=== PATIENT | male | born 1975 | race Two or more races ===

== ENCOUNTER 2016-05-25 15:33 | Emergency (ER) | payer OTHER ==
[~2016-05-25] VITALS: Ht 152.4 cm; Wt 90.7 kg
[~2016-05-25 15:33] MED LIST: AMOXICOT500 M1 PO; BACTRIM DS 8001 TAB PO; CIPRO 500MG TA500 MG PO; KEFLEX 500MG.500 MG PO; LAMISIL AT1% TP; PHENERGAN25 M3 PO; PREDNISONE 20MG20 MG PO
--- NOTE | 2016-05-25 15:49 | Emergency Room Report ---
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 N Clinical Suspician of Infection? N Mental Status: 1 - Regular (Normal Baseline) Sepsis Risk:Low Sepsis Risk Have you (or family members/close friends) recently traveled outside the [place]? N If Yes, where/when: Have you had exposure to infectious disease within the past month? N TB? Other? Specify: Source patient Exam Limitations no limitations Comment Pt presents to ER with complaints of sore throat, pain with swallowing, PND, "little cough," no appetite, headache, and occasional nausea. Reports these symptoms have been present for one week. He has not been using any medications to treat, and no known sick exposures. Timing/Duration week (one) Severity mild Associated Symptoms nausea, cough, headache, sore throat ALLERGIES Coded Allergies: No Known Allergies (07/08/15) History Medical History General CAD? No Angina: No OR: No Hypertension? No Hyperlipidemia? Yes CHF? No COPD? No Asthma? No Anemia? No Hernia? No Thyroid Problems? No Hypothyroidism? No CVA? No Seizures? No Diabetes? No End Stage Renal Disease? No UTI? No Stones? No GB Disease: No Nephritic Syndrome? No Asplenia? No Sickle Cell Disease? No Arthritis? No Cataracts? No Glaucoma? No MRSA? No TB? No Cancer? No Immunization Hx DT/Tetanus 01/05/09 Surgical Hx Previous Surgery?Y R FINGERS REPAIR Social History Smoking Hx Smoker: Never Smoker Tobacco: No Alcohol Alcohol: No Review of Systems All Other Systems Reviewed and Negative ENT nose congestion, throat pain. denies: ear pain. Respiratory cough Gastrointestinal nausea Physical Exam Vital Signs Vital Signs Date Time Temp Pulse Resp B/P Pulse O2 O2 Flow FiO2 Ox Delivery Rate 05/25 1540 98.1 83 18 138/87 98 General Appearance normal appearance, WD/WN Eye Exam - bilateral eye normal exam, bilateral eye PERRL, bilateral eye EOMI Ear, Nose, Throat hearing grossly normal, abnormal TM (R), abnormal TM (L), sinus pain/drainage, nasal congestion, pharyngeal erythema, tonsillar exudate, tonsillar swelling Neck normal inspection, non-tender, supple, full range of motion Respiratory Status Yes: trachea midline, chest symmetrical, non tender chest. No: respiratory distress. Lung Sounds bilateral: normal breath sounds, lungs clear. 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 No Departure Departure Time of Disposition 1554 Disposition DC Home or Self Care(routine) Clinical Impression Primary Impression: Acute bacterial tonsillitis Secondary Impressions: Bilateral acute otitis media Condition STABLE Referrals Luis Byrd F/U in 1-2 weeks to ensure resolution of illness, sooner if worse before then. Patient Instructions DI for Otitis Media (Middle Ear Infection)-Child, DI for Pharyngitis/Tonsillopharyngitis -- Adult Additional Instructions Increase fluids, warm salt water gargles for throat 3 times a day for next 7-10 days. May use tylenol or ibuprofen as needed for fever and or pain. Discharge Counseling Counseled pt/family regarding diagnosis, medications/RX, home care, follow up needs Prescriptions Current Visit Scripts Amoxicillin/Potassium Clav (Augmentin 875-125 Tablet) 1 EACH PO BID 10 Days ED Critical Care Critical Care No Comments Increase fluids, warm salt water gargles for throat 3 times a day for next 7-10 days. May use tylenol or ibuprofen as needed for fever and or pain. at 1606
[2016-05-25] MEDS ORDERED: AUGMENTIN 875-1 EACH PO (16:00)
[2016-05-25 16:05] VITALS: BP 138/87
== END 2016-05-25 16:09 | disposition home or self-care (01) ==
LOC: ER 15:33
DX: J03.90 Acute tonsillitis, unspecified (principal); H66.93 Otitis media, unspecified, bilateral